=== PATIENT | female | born 1960 | race Hispanic/Latino ===

== ENCOUNTER 2024-03-29 15:20 | Emergency (ER) | payer SELFPAY ==
[~2024-03-29] VITALS: Ht 160 cm; Wt 59.1 kg
[2024-03-29] VITALS (9 sets, daily range): BP systolic 130–149; BP diastolic 63–73
[2024-03-29] MEDS ORDERED: SODIUM CHLORIDE 0.9% 1,000 ML IV ONE (16:55)
[2024-03-29] MEDS ORDERED: KETOROLAC TROMETHAMINE 30 MG/ML SDV IV ONE (16:55)
[2024-03-29 17:38] LABS: URINE BILIRUBIN - DIPSTICK Negative (NEGATIVE); URINE BLOOD DIPSTICK Trace-lysed (NEGATIVE); URINE GLUCOSE - DIPSTICK Negative (NEGATIVE); URINE KETONE Negative (NEGATIVE); URINE NITRITE - DIPSTICK Negative (Negative); URINE PROTEIN - DIPSTICK Negative (NEG-TRACE); URINE SPECIFIC GRAVITY <=1.005; URINE UROBILINOGEN - DIPSTICK 0.2 E.U./dL (0.2)
[2024-03-29 17:39] LABS: URINE COLOR Straw; URINE LEUK ESTERASE Small (NEGATIVE)
[2024-03-29 17:45] LABS: BASO% 0.1 % (0-3); EOS% 5.5 % (0-8); HEMATOCRIT 41.2 % (37.0-47.0); HEMOGLOBIN 14.9 g/dl (12.0-16.0); MEAN CELL VOLUME 82.4 fL CALC (80.0-100.0); MEAN CORPUSCULAR HGB 29.8 pG CALC (26.0-32.0); MEAN CORPUSCULAR HGB CONC 36.2 g/dL CAL (32.0-36.0); MONO% 5.2 % (2-13); NEUT# 3.56 thou/uL (2.00-7.15); NEUT% 50.4 % (42-76); RED CELL DISTRI WIDTH 12.7 % (11.5-15.5)
[2024-03-29 17:46] LABS: URINE RBC 0-2 RBC/hpf (0-5); URINE SQUAMOUS EPITHELIAL CELL MODERATE EPI/hpf (0-FEW)
[2024-03-29 17:47] LABS: URINE BACTERIA FEW hpf
[2024-03-29 18:05] LABS: ALBUMIN 4.1 g/dL (3.2-5.0); ALKALINE PHOSPHATASE 94 u/l (38-126); AMYLASE 61 u/l (30-110); ANION GAP 13 (6-22 (CALC)); BILIRUBIN, TOTAL 0.5 mg/dL (0.02-1.3); BUN 12 mg/dL (8-23); BUN/CREATININE RATIO 21 (12-20 (CALC)); CARBON DIOXIDE 26 mmol/l (22-30); CHLORIDE 102 mmol/l (95-108); CREATININE 0.6 mg/dL (0.5-1.0); ESTIMATED GFR 100 ML/MIN (>=90 (CALC)); LIPASE 123 u/l (23-300); POTASSIUM 4.5 mmol/l (3.5-5.1); SGOT/AST 35 u/l (9-36); SODIUM 136 mmol/l (137-146); TOTAL PROTEIN 8.1 g/dL (6.3-8.2)
[2024-03-29 18:13] LABS: LYMPH% 37.8 % (15-41)
[2024-03-29] MEDS ORDERED: NAPROXEN500 MG PO (20:19)
[2024-03-29] MEDS ORDERED: METHOCARBAMOL500 MG PO (20:19)
[2024-03-29] MEDS ORDERED: KEFLEX500 MG PO (20:19)
[2024-03-29] MEDS ORDERED: PROTONIX40 M2 PO (20:19)
[2024-03-29] MEDS ORDERED: ORPHENADRINE CITRATE 30 MG/ML AMP IV ONE (20:20)
[2024-03-29] MEDS ORDERED: CEPHALEXIN MONOHYDRATE 500 MG/CAP PO ONE (20:20)
[2024-03-29] MEDS ORDERED: Pantoprazole Sodium 40 MG VIAL (Protonix) IV ONE (20:20)
== END 2024-03-29 21:25 | disposition home or self-care (01) | DRG 690 ==
LOC: ED 15:20 → EDBD 15:20 → ED 17:44
PROVIDERS: Nurse Practitioner
DX: N39.0 Urinary tract infection, site not specified (principal); Z90.49 Acquired absence of other specified parts of digestive tract
CPT/HCPCS: J2360; J2470; Q9967